=== PATIENT | female | born 1995 | race Caucasian/White ===

== ENCOUNTER → 2021-04-01 10:51 | Outpatient (CLI) | payer MEDICAID, SELFPAY ==
--- NOTE | 2021-04-01 10:55 | US_ITS ---
PROCEDURE: US OB >= 14 WEEKS FETUS CLINICAL INDICATION: for dates COMPARISON: No exams were available for comparison FINDINGS: There is a single live intrauterine which is in cephalic presentation. The cervix is closed measuring 3 cm. Placenta is posterior and grade 1. heart tones and body motion noted. Measurements: Average ultrasound age 15weeks 5days. Gestational Age 15weeks 5days Estimated due date by ultrasound age 1109/18/2021. Estimated weight 123g BPD = 15weeks 5days OFD = 16weeks 2days HC = 15weeks 5days AC = 15weeks 2days FL = 15weeks 4days Growth Percentile= 21% Heart Rate = 142bpm Cerebellum = Humerus = HC/AC is 1.28 CI is 0.72 FL/BPD is 0.6 FL/AC is 0.2 IMPRESSION: Live IUP with an average ultrasound age of 15 weeks 5 days. All parameters correlate. Estimated due date by ultrasound is 09/18/2021. This exam does not constitute a complete anatomy exam which would be recommended at 20 weeks Dictated by: Terrell Almaguer MD 04/01/2021 17:05 Terrell Almaguer MD in [facility] 04/01/2021 17:05
== END ==
PROVIDERS: Visit Provider Nurse Practitioner Obstetrics & Gynecology
DX: Z34.90 Encounter for supervision of normal pregnancy, unspecified, unspecified trimester (principal)
CPT/HCPCS: 76805